=== PATIENT | male | born 1970 | race Caucasian/White ===

== ENCOUNTER 2020-08-01 09:45 | Outpatient (CLI) | payer OTHER | END 2020-08-01 09:46 | disposition home or self-care (01) | LOC: CTENTCT 09:45 | PROVIDERS: ATTEND Student in an Organized Health Care Education/Training Program | DX: H73.892 Other specified disorders of tympanic membrane, left ear (principal) | CPT/HCPCS: 70480 ==

== ENCOUNTER 2020-10-22 07:11 | Day surgery (SDC) | payer OTHER ==
[2020-10-22 08:15] LABS: BHCG - Serum Negative (NEGATIVE); Pregs Control Background? CLEAR/WHITE (CLR/WHITE); Pregs Control Bar Appear? YES (CONTROL BAR)
[2020-10-22] MEDS ORDERED: EPINEPHrine 1 MG/ML AMP ONE (08:16)
[2020-10-22] MEDS ORDERED: Bupivacaine 0.25% HCL 30 ML VIAL ONE (08:16)
[2020-10-22] MEDS ORDERED: Bacitracin Zinc Ointment 30 gm TUBE ONE (08:17)
[2020-10-22] MEDS ORDERED: Ciprofloxacin 0.2% Otic (0.25ML CONTAINER) ONE (08:17)
[2020-10-22] MEDS ORDERED: Sodium Chloride 0.9% 10 ML ONE (08:17)
[2020-10-22] MEDS ORDERED: Midazolam HCl 2 mg/2 ml Vial ONE ×3 (08:20→08:57)
[2020-10-22] MEDS ORDERED: Lidocaine 1% w/Epinephrine 1:100K 20 ML VIAL ONE (08:30)
[2020-10-22] MEDS ORDERED: Fentanyl 100 MCG/2 ML VIAL ONE ×4 (08:57→11:19)
[2020-10-22] MEDS ORDERED: SUGAMMADEX SODIUM 200 MG/2 ML VIAL ONE (08:57)
[2020-10-22] MEDS ORDERED: Glycopyrrolate 0.2 MG/ML 5 ML SYRINGE ONE (09:25)
[2020-10-22] MEDS ORDERED: PHENYLEPHRINE-NS 100 MCG/ML 10 ML SYRINGE ONE (09:25)
[2020-10-22] MEDS ORDERED: Rocuronium Bromide 10 MG/ML (10ML VIAL) ONE (09:25)
[2020-10-22] MEDS ORDERED: ePHEDrine Sulfate 50 MG/10 ML VIAL ONE (09:25)
[2020-10-22] MEDS ORDERED: Ketorolac Tromethamine 30 MG/ML VIAL ONE (09:25)
[2020-10-22] MEDS ORDERED: PROPOFOL 200 MG/20 ML VIAL ONE (09:25)
[2020-10-22] MEDS ORDERED: Ondansetron PF 4 MG/2 ML Vial ONE (09:25)
[2020-10-22] MEDS ORDERED: Dexamethasone 20 MG/5 ML VIAL ONE (09:25)
[2020-10-22] MEDS ORDERED: Lidocaine 1% PF 5 ML VIAL ONE (09:25)
[2020-10-22] MEDS ORDERED: HYDROcodone/Acetaminophen 5/325 mg Tablet ONE (11:20)
== END 2020-10-22 12:35 | disposition home or self-care (01) ==
LOC: EDSEX → SDC 07:11
PROVIDERS: ATTEND Otolaryngology Otology & Neurotology
PROC: 09B Ear, Nose, Sinus, Excision (ICD-10-PCS; principal; 2020-10-22)
PROC: 09B Ear, Nose, Sinus, Excision (ICD-10-PCS; principal; 2020-10-22)
DX: H71.22 Cholesteatoma of mastoid, left ear (principal); H90.3 Sensorineural hearing loss, bilateral; F17.200 Nicotine dependence, unspecified, uncomplicated; Z79.899 Other long term (current) drug therapy
CPT/HCPCS: 36415; 84703; 85014; J0171; J1100; J1885; J2250; J2405; J2704; J3010; J3490; S0020